=== PATIENT | male | born 1955 | race Two or more races ===

== ENCOUNTER 2019-05-03 10:45 | Emergency (ER) | payer MEDICAID, OTHER ==
[~2019-05-03] VITALS: Ht 165.1 cm; Wt 76.0 kg
[2019-05-03] MEDS ORDERED: KETOROLAC 30MG/ML VIAL IV STA (18:24)
[2019-05-03] MEDS ORDERED: SODIUM CHLORIDE 0.9% 1,000 ML IV ONE (18:24)
[2019-05-03 19:10] LABS: BASOPHILS % 0.7 % (0.0-2.0); EOSINOPHILS % 0.1 % (0.0-5.0); HEMATOCRIT. 45.1 % (42.0-52.0); HEMOGLOBIN. 15.6 g/dL (14.0-18.0); LYMPHOCYTES % 21.3 % (20.0-50.0); MEAN CORPUSCULAR HEMOGLOBIN 31.3 pg (28.0-32.0); MEAN CORPUSCULAR VOLUME 90.2 fL (80.0-94.0); MEAN PLATELET VOLUME 7.9 fl (7.4-10.4); MONOCYTES % 13.3 % (2.0-8.0); NEUTROPHILS % 64.6 % (40.0-76.0); PLATELET 163 x1000/uL (130-400); RED CELL DISTRIBUTION WIDTH 14.1 % (11.6-14.6)
[2019-05-03 19:12] LABS: CHLORIDE 102 mEq/L (98-107)
[2019-05-03] MEDS ORDERED: POTASSIUM CHLORIDE 20MEQ TABLET SR PO NR (19:30)
[2019-05-03] MEDS ORDERED: IOHEXOL-350 100 ML BOTTLE ONE (20:55)
[2019-05-03 23:05] VITALS: BP 145/89
== END 2019-05-03 23:06 | disposition home or self-care (01) ==
LOC: ER 10:52
DX: J02.9 Acute pharyngitis, unspecified (principal); E87.6 Hypokalemia; I10 Essential (primary) hypertension
CPT/HCPCS: 36415; 71045; 71275; 80053; 84443; 84484; 85025; 87070; 87430; 93005; 96374; 99284; J1885; J7030; Q9967

== ENCOUNTER 2022-12-25 05:31 | Emergency (ER) | payer OTHER ==
[~2022-12-25] VITALS: Ht 165.1 cm; Wt 77.5 kg
[2022-12-25 05:47] VITALS: O2SAT 98
[2022-12-25] MEDS ORDERED: KETOROLAC 60MG/2ML VIAL IM ONE (06:00)
[2022-12-25] MEDS ORDERED: CYCL10TA21 MT (07:16)
[2022-12-25] MEDS ORDERED: IBUP-2029 MT (07:16)
[2022-12-25 08:12] VITALS: BP 137/74; PULSE 96; RESP 18; TEMP 98.4
== END 2022-12-25 08:13 | disposition home or self-care (01) ==
LOC: ER 05:31
DX: M54.9 Dorsalgia, unspecified (principal)
CPT/HCPCS: 99283; 72100; 96372; J1885